=== PATIENT | female | born 1995 | race Caucasian/White ===

== ENCOUNTER → 2017-08-31 | Outpatient (CLI) | payer BC, OTHER ==
[~2017-08-31] MED LIST: ALBU90OI61 INH; CEPH500 PO; CITA20 PO; EXPECTA PRENAT1 EACH; GUAI600T33 PO; IBUP800 PO; OXYACE5T PO
[2017-08-31 19:05] LABS: Specimen Source URINE
[2017-09-01 15:17] LABS: Source Urine
== END | disposition home or self-care (01) ==
LOC: LAB 19:04
PROVIDERS: Advanced Practice Midwife
DX: Z11.3 Encounter for screening for infections with a predominantly sexual mode of transmission (principal)
CPT/HCPCS: 87491; 87591